=== PATIENT | male | born 1990 | race Two or more races ===

== ENCOUNTER 2022-11-22 04:59 | Emergency (ER) | payer SELFPAY | END 2022-11-22 06:11 | disposition home or self-care (01) | LOC: JP.ED 04:59 | DX: G47.00 Insomnia, unspecified (principal) | CPT/HCPCS: 99283 ==

== ENCOUNTER 2023-05-09 00:22 | Emergency (ER) | payer BC ==
[2023-05-09 01:11] LABS: CORONAVIRUS COVID-19 NAA NEGATIVE (NEGATIVE); INFLUENZA A NAA NEGATIVE (NEGATIVE); INFLUENZA B NAA POSITIVE (NEGATIVE); RESPIRATORY SYNCYTIAL VIR NAA NEGATIVE (NEGATIVE)
== END 2023-05-09 01:38 | disposition home or self-care (01) ==
LOC: JP.ED 00:22
DX: J10.1 Influenza due to other identified influenza virus with other respiratory manifestations (principal)
CPT/HCPCS: 0241U; 99284; 99283